=== PATIENT | male | born 2000 | race African-American/Black ===

== ENCOUNTER 2024-01-21 08:40 | Day surgery (SDC) | payer OTHER ==
[~2024-01-21] VITALS: Ht 165.1 cm; Wt 93.2 kg
[~2024-01-21 08:40] MED LIST: TRANEXAMIC ACID 100 MG/ML 10ML VIAL IV ONE
[2024-01-21] MEDS ORDERED: LR 1,000 ML IV SCH ×2 (08:45→17:05)
[2024-01-21] MEDS ORDERED: SODIUM CHLORIDE 0.9% 1000 ML IV STA (09:57)
[2024-01-21] MEDS ORDERED: fentaNYL 100 MCG/2 ML INJECTION As Ordered ONE (10:14)
[2024-01-21] MEDS ORDERED: MIDAZOLAM INJ 2MG/2ML VIAL As Ordered ONE (10:14)
[2024-01-21] MEDS ORDERED: ONDANSETRON 4MG 2ML VIAL As Ordered ONE (10:15)
[2024-01-21] MEDS ORDERED: KETOROLAC 60MG 2ML VIAL As Ordered ONE (10:15)
[2024-01-21] MEDS ORDERED: SUGAMMADEX SODIUM 500 MG/5 ML VIAL (BRIDION) As Ordered ONE (10:15)
[2024-01-21] MEDS ORDERED: propofoL 200 MG/20 ML VIAL As Ordered ONE (10:15)
[2024-01-21] MEDS ORDERED: ROCURONIUM BROMIDE 50MG/5ML VIAL As Ordered ONE (10:15)
[2024-01-21] MEDS ORDERED: LIDOCAINE 2% 100MG/5ML SDV (FOR ANES.) As Ordered ONE (10:15)
[2024-01-21] MEDS ORDERED: ACETAMINOPHEN 1000MG/100ML IV BAG As Ordered ONE (10:16)
[2024-01-21] MEDS: NS 250 ML IV SCH (10:32)
[2024-01-21] MEDS ORDERED: LIDOCAINE 1% SDV 5ML VIAL PN ONE (10:40)
[2024-01-21] MEDS ORDERED: ROPIvacaine 0.5% 30ML VIAL PN ONE (10:40)
[2024-01-21] MEDS ORDERED: dexAMETHasone 10MG/1ML VIAL PRES.FREE PN ONE (10:40)
[2024-01-21] MEDS: fentaNYL 100 MCG/2 ML INJECTION IV PRN ×2 (11:17→17:21)
[2024-01-21] MEDS: MIDAZOLAM INJ 2MG/2ML VIAL IV PRN (11:18)
[2024-01-21] MEDS: ceFAZolin SOD 2 GM in IV 1 EA IV ONE (11:56)
[2024-01-21] MEDS: TRANEXAMIC ACID 100 MG/ML 10ML VIAL As Ordered ONE (12:22)
[2024-01-21] MEDS: EPINEPHrine INJ 1 MG/ML 1ML AMP As Ordered ONE (12:38)
[2024-01-21] MEDS ORDERED: KETAMINE HCL 200MG/20ML VIAL As Ordered ONE (14:31)
[2024-01-21] MEDS: ceFAZolin 2 GM/D5W 50 ML IV BAG As Ordered ONE (15:48)
[2024-01-21] MEDS ORDERED: HYDROMORPHONE HCL 0.5 MG/ 0.5 ML SYRINGE IV PRN (17:05)
[2024-01-21] MEDS ORDERED: ONDANSETRON 4MG 2ML VIAL IV PRN (17:05)
[2024-01-21] MEDS ORDERED: HYDROmorphone HCL 2MG/ML 1ML VIAL As Ordered ONE (17:08)
[2024-01-21] MEDS: oxyCODONE 5MG TAB PO PRN (17:55)
[2024-01-21 18:55] VITALS: BP 125/65; TEMP 97.5; O2SAT 99
== END 2024-01-21 19:30 | disposition home or self-care (01) ==
LOC: M SDC 08:40
PROVIDERS: ATTEND Orthopaedic Surgery
DX: M23.612 Other spontaneous disruption of anterior cruciate ligament of left knee (principal)
CPT/HCPCS: 29888; 64447; 73560; C1713; J0131; J0171; J0665; J0690; J1100; J1171; J1885; J2250; J2405; J3010

== ENCOUNTER 2024-04-24 15:21 | Emergency (ER) | payer OTHER ==
[~2024-04-24] VITALS: Ht 165.1 cm; Wt 98.2 kg
[2024-04-24] MEDS: ONDANSETRON 4MG 2ML VIAL IV ONE (17:10)
[2024-04-24] MEDS: KETOROLAC 30 MG/ML 1ML VIAL IV ONE (17:10)
[2024-04-24] MEDS: METOCLOPRAMIDE INJ 10MG/2ML VIAL IV ONE (17:50)
[2024-04-24 20:15] VITALS: BP 118/71; TEMP 97.6; O2SAT 97
[2024-04-24] MEDS: ONDANSETRON 4MG ORAL DISINTEGRATING TAB PO ONE (20:15)
== END 2024-04-24 20:17 | disposition home or self-care (01) ==
LOC: M ED 15:21
DX: S06.0X0A Concussion without loss of consciousness, initial encounter (principal); W19.XXXA Unspecified fall, initial encounter; Y92.89 Other specified places as the place of occurrence of the external cause; Y93.89 Activity, other specified; Y99.1 Military activity
CPT/HCPCS: 70450; 70486; 80047; 93005; 96374; 99284; J1885; J2405